=== PATIENT | male | born 1995 | race Caucasian/White ===

== ENCOUNTER 2017-09-30 22:14 | Emergency (ER) | payer MEDICAID ==
--- NOTE | 2017-09-30 22:29 | ED PDOC ---
Arrival/HPI - General Time Seen by Provider: 09/30/17 22:19 Historian: Patient - History of Present Illness Narrative History of Present Illness (Text): 09/30/17 22:26 22yo male with no pmhx who present with complaint of left ankle pain s/p trauma. States he twisted his ankle, when he stepped on somebody foot, during a basketball game tonight. He did not take any medication. Report pain with weight bearing. Past Medical History - Provider Review Nursing Documentation Reviewed: Yes - Tetanus Immunization Tetanus Immunization: Up to Date - Psychiatric Hx Substance Use: No Family/Social History - Physician Review Nursing Documentation Reviewed: Yes Family/Social History: Unknown Family HX Smoking Status: Never Smoked Hx Alcohol Use: No Hx Substance Use: No Allergies/Home Meds Allergies/Adverse Reactions: Allergies No Known Allergies Allergy (Verified 09/30/17 22:38) Review of Systems - Physician Review All systems were reviewed & negative as marked: Yes - Review of Systems Constitutional: Normal Eyes: Normal ENT: Normal Respiratory: Normal Cardiovascular: Normal Gastrointestinal: Normal Genitourinary Male: Normal Musculoskeletal: Arthralgias (Left ankle pain) Skin: Normal Neurological: Normal Endocrine: Normal Hemo/Lymphatic: Normal Psychiatric: Normal Physical Exam Vital Signs Reviewed: Yes Vital Signs Temp Pulse Resp BP Pulse Ox 09/30/17 23:00 98 F 74 19 114/52 L 99 09/30/17 22:33 98 F 92 H 18 131/74 100 Temperature: Afebrile Blood Pressure: Normal Pulse: Regular Respiratory Rate: Normal Appearance: Positive for: Well-Appearing, Non-Toxic, Comfortable Pain Distress: None Mental Status: Positive for: Alert and Oriented X 3 - Systems Exam Head: Present: Atraumatic, Normocephalic Pupils: Present: PERRL Extroacular Muscles: Present: EOMI Conjunctiva: Present: Normal Mouth: Present: Moist Mucous Membranes Neck: Present: Normal Range of Motion Respiratory/Chest: Present: Clear to Auscultation, Good Air Exchange. No: Respiratory Distress, Accessory Muscle Use Cardiovascular: Present: Regular Rate and Rhythm, Normal S1, S2. No: Murmurs Abdomen: No: Tenderness, Distention, Peritoneal Signs Back: Present: Normal Inspection Upper Extremity: Present: Normal Inspection. No: Cyanosis, Edema Lower Extremity: Present: Normal Inspection, NORMAL PULSES, Normal ROM, Tenderness (Left lateral malleolus), Swelling (Left lateral malleolus), Neurovascularly Intact. No: Edema Neurological: Present: GCS=15, CN II-XII Intact, Speech Normal Skin: Present: Warm, Dry, Normal Color. No: Rashes Psychiatric: Present: Alert, Oriented x 3, Normal Insight, Normal Concentration Medical Decision Making ED Course and Treatment: 09/30/17 22:59 PT in ED for stated history. His pain was controlled in ED with medication. Left ankle xray - No acute fracture noted Xray also reviewed with Dr. Spivey Result was DW the pt. He was advised that official report might be different from the report he was given. Advised that he will be called and notified if official reading is different. Air cast and jessica wrap placed. PT advised to RICE ankle. Crutches given. Referred to ortho. - RAD Interpretation Radiology Orders: 09/30/17 22:24 ANKLE LEFT 3 VIEWS ROUTINE [RAD] Stat - Medication Orders Current Medication Orders: Discontinued Medications Ibuprofen (Motrin Tab) 600 mg PO STAT STA Stop: 09/30/17 22:25 Last Admin: 09/30/17 22:38 Dose: 600 mg MAR Pain/Vitals Document 09/30/17 22:38 GMD (Rec: 09/30/17 22:39 GMD [id number]) Pain Scale Used Pain Scale Used Numeric Location Description Intermittent Intensity 4 Disposition/Present on Arrival - Present on Arrival Any Indicators Present on Arrival: No History of DVT/PE: No History of Uncontrolled Diabetes: No Urinary Catheter: No History of Decub. Ulcer: No History Surgical Site Infection Following: None - Disposition Have Diagnosis and Disposition been Completed?: Yes Diagnosis: Ankle sprain Disposition: HOME/ ROUTINE Disposition Time: 23:15 Patient Plan: Discharge Patient Problems: Current Active Problems Problem Status Onset Ankle sprain Acute Condition: STABLE Discharge Instructions (ExitCare): Ankle Sprain (DC) Additional Instructions: Rest, Ice, compress and elevate ankle Follow up with your Doctor/Orthopedist Return to ED for any new symptoms Prescriptions: Ibuprofen [Motrin Tab] 600 mg PO Q6 #20 tab Referrals: Aníbal Diaz MD [Staff Provider] - Follow up with primary Forms: WORK NOTE
[2017-09-30 22:48] VITALS: TEMP 98; BMI 21.4
[2017-09-30 23:37] VITALS: PULSE 74; RESP 19; O2SAT 99
[2017-09-30 23:38] VITALS: BP 116/59
--- NOTE | 2017-10-01 07:27 | RAD ---
PROCEDURE: Left Ankle Radiographs. HISTORY: ankle pain s/p trauma COMPARISON: None FINDINGS: BONES: Normal. No fracture. JOINTS: Normal. No osteoarthritis. Ankle mortise maintained. Talar dome intact SOFT TISSUES: Lateral soft tissue swelling without associated osseous abnormality. OTHER FINDINGS: None. IMPRESSION: Soft tissue swelling without acute articular or osseous abnormality.
== END 2017-09-30 23:37 | disposition home or self-care (01) ==
LOC: ED 22:14
DX: S93.402A Sprain of unspecified ligament of left ankle, initial encounter (principal); X50.1XXA Overexertion from prolonged static or awkward postures, initial encounter; Y93.67 Activity, basketball; Y92.39 Other specified sports and athletic area as the place of occurrence of the external cause